=== PATIENT | female | born 1985 | race Caucasian/White ===

== ENCOUNTER 2016-10-16 05:18 | Inpatient (IN) | payer OTHER ==
[~2016-10-16] VITALS: Ht 175.3 cm; Wt 72.3 kg
[~2016-10-16 05:18] MED LIST: SENN15CH6 PO
[2016-10-27] MEDS ORDERED: PRENTAB26 PO (08:10)
[2016-10-27 08:12] VITALS: Ht 175.3 cm; Wt 72.3 kg
[2016-10-27 09:39] LABS: HEMATOCRIT 34.8 % (37-47); MEAN CELL VOLUME 91.8 fL (80-100); MEAN CORPUSCULAR HEMOGLOBIN 32.2 pg (25-34); MEAN CORPUSCULAR HGB CONC 35.1 g/dl (32-36); MEAN PLATELET VOLUME 9.9 fL (7.4-10.4); PLATELET COUNT 159 K/uL (130-400); RED BLOOD COUNT 3.79 M/uL (4.2-5.4); WHITE BLOOD COUNT 9.53 K/uL (4.8-10.8)
[2016-10-27] MEDS ORDERED: MISOPROSTOL 25 MCG TAB PV ONE (09:45)
[2016-10-27] MEDS ORDERED: CALCIUM CARBONATE 500 MG CHEWABLE PO PRN (10:45)
[2016-10-27] MEDS ORDERED: MISOPROSTOL 25 MCG TAB ONE (15:15)
[2016-10-27] MEDS ORDERED: MISOPROSTOL 25 MCG TAB PO ONE (15:30)
[2016-10-28] MEDS ORDERED: LACTATED RINGER'S 1000ML 500 ML IV PRN ×2 (07:48→15:52)
[2016-10-28] MEDS: LACTATED RINGER'S 1000ML 1,000 ML IV SCH ×4 (07:51→20:32)
[2016-10-28] MEDS ORDERED: OXYTOCIN 30 UNITS/500ML NSS IV PRN (08:00)
[2016-10-28] MEDS ORDERED: BUPIVACAINE 0.25% 30 ML VIAL ONE (14:52)
[2016-10-28] MEDS ORDERED: FENTANYL 2MCG/ML ROPIV 1.25MG/ML 100ML BAG EPI ONE (14:53)
[2016-10-28] MEDS ORDERED: FENTANYL CITRATE INJ 50 MCG/1 ML 2 ML VIAL ONE (14:53)
[2016-10-28] MEDS ORDERED: EpHEDrine SULFATE INJ 50 MG/ML AMP ONE (14:53)
[2016-10-28] MEDS ORDERED: NALOXONE HCL INJ 1 MG in SODIUM CHLORIDE 0.9% 1000ML 1,000 ML IV PRN (15:52)
[2016-10-28] MEDS ORDERED: NALBUPHINE HCL INJ 10 MG/ML AMP IV PRN (16:00)
[2016-10-28] MEDS ORDERED: NALOXONE HCL INJ 0.4 MG/1 ML VIAL/CARP IV PRN (16:00)
[2016-10-28] MEDS ORDERED: ONDANSETRON INJ 2 MG/ML 2 ML VIAL IV PRN (16:00)
[2016-10-28] MEDS ORDERED: DiphenhydrAMINE HCL 50 MG/ML VIAL IV PRN (16:00)
[2016-10-28] MEDS ORDERED: EpHEDrine SULFATE INJ 50 MG/ML AMP IV PRN (16:00)
[2016-10-28] MEDS ORDERED: TERBUTALINE SULFATE 1 MG/ML VIAL SQ STA (21:20)
[2016-10-28] MEDS: FENTANYL 2MCG/ML ROPIV 1.25MG/ML 100ML BAG EPI PRN ×2 (22:56→23:04)
[2016-10-29] VITALS (7 sets, daily range): BP systolic 95–116; BP diastolic 58–66; PULSE 95–113; TEMP 36.3–37.6; O2SAT 96–98
[2016-10-29] MEDS ORDERED: NURSING VERBAL MED ORDER ONE (02:45)
[2016-10-29] MEDS ORDERED: CEFAZOLIN SOD 2000 MG in DEXTROSE 5% 50ML IV STA (02:45)
[2016-10-29] MEDS ORDERED: LACTATED RINGER'S 1000ML 1,000 ML IV SCH (02:50)
[2016-10-29] MEDS ORDERED: MISOPROSTOL 200 MCG TAB PR STA (02:58)
[2016-10-29] MEDS ORDERED: MEASLES, MUMPS & RUBELLA VIRUS VIAL SQ. ONE (03:00)
[2016-10-29] MEDS ORDERED: LANOLIN OINT EXT PRN ×2 (03:00)
[2016-10-29] MEDS ORDERED: HYDROCORTISONE ACETATE 25 MG SUPP PR PRN (03:00)
[2016-10-29] MEDS ORDERED: OXYTOCIN 30 UNITS/500ML NSS IV PRN (03:00)
[2016-10-29] MEDS ORDERED: BENZOCAINE 20% AER SPR 82.5 GM CAN EXT PRN (03:00)
[2016-10-29] MEDS ORDERED: DIPHTHERIA/TETANUS/PERTUSSIS 0.5 ML SYR/VIAL IM. ONE (03:00)
[2016-10-29] MEDS ORDERED: SUPERCREAM 0.870 % 15GM JAR EXT PRN (03:00)
[2016-10-29] MEDS ORDERED: ACETAMINOPHEN 325 MG TAB PO PRN (03:00)
--- NOTE | 2016-10-29 03:17 | DELIVERY SUMMARY ---
DATE OF OPERATION: 10/29/2016 DATE OF DELIVERY: 10/29/2016 TIME OF DELIVERY OF BABY: 02:13 a.m. TIME OF DELIVERY OF PLACENTA: 02:41 a.m. DETAILS OF DELIVERY: The patient was found to be fully dilated and desired to push. She pushed for about 1 hour and 45 minutes and the head was over the perineum which had tight hymenal ring and perineal muscles. The patient was exhaused and desired episiotomy. 1% Lidocaine was used for local anesthesia. A right mediolateral episiotomy was opened. The baby's head was delivered without difficulty. There was a nuchal cord around the next x1, which was reduced by delivering the body. Shoulders were delivered with minimal traction. Baby was handed off to the mother where mouth and nose were suctioned. Cord was clamped x2 and cut at 1 minute, and cord blood was obtained. Vagina and perineum were checked for lacerations, there was right mediolateral episiotomy which was opened earlier, no other lacerations were seen, it was second degree, confirmed with rectal exam. Gloves were changed. The episiotomy was repaired with 2-0 Vicryl in a running fashion brining the bulbocavernosus muscles together, skin in a subcuticular fashion. Rectal exam was repeated. Good sphincter tone was noted and no sutures were felt. Gloves were changed. The rest of the vagina, perineum, and labia appeared to be intact. The placenta was found to be in the vagina, delivered spontaneously as intact and complete. Uterus was explored and emptied from the clots and found to be empty otherwise. Fundus was boggy and she was given IV Pitocin and bimanual massage was done and 800 mcg of misoprostol was placed in the rectum and the bleeding slowed down and uterus became firm. EBL was 300. Mother and baby tolerated the procedure well. Sponge, lap, needle and instrument counts were correct x2. Baby was a viable male infant. Apgars 8/9, weight is 3814 gr. Baby's temperature was 38.3 and mom's temperature was 99.9 Fahrenheit. The patient was feeling warm by vaginal exam, and decision was made to start cefazolin IV. No complications happened and I was present during the whole procedure. I attest to the content of the Intraoperative Record and any orders documented therein. Any exceptions are noted below. MTDD
[2016-10-29] MEDS: IBUPROFEN 600 MG TAB PO PRN ×4 (04:42→20:06)
[2016-10-29] MEDS: PRENATAL VITAMIN TAB PO SCH (08:17)
[2016-10-29] MEDS: DOCUSATE SODIUM 100 MG CAP PO SCH ×2 (08:18→20:06)
[2016-10-29] MEDS: FERROUS SULFATE 325 MG TAB PO SCH (08:18)
[2016-10-29] MEDS ORDERED: MISOPROSTOL 200 MCG TAB ONE (08:35)
--- NOTE | 2016-10-29 10:10 | Anesthesia Procedure Note ---
Anesthesia Epidural Removal Nt Date & Time Oct 29, 2016 at 10:09 Vital Signs Pain Intensity: 6.0 Vital Signs Past 12 Hours Date Time Temp Pulse Resp B/P (MAP) Pulse Ox O2 Delivery O2 Flow Rate FiO2 10/29/16 08:00 Room Air 10/29/16 08:00 37.2 103 18 98/62 (74) Room Air 10/29/16 05:37 Room Air 10/29/16 05:33 37.6 113 20 116/59 (78) Room Air Notes Mental Status: alert / awake / arousable, participated in evaluation Nausea / Vomiting: adequately controlled Pain: adequately controlled Airway Patency, RR, SpO2: stable & adequate BP & HR: stable & adequate Hydration State: stable & adequate Neuraxial Anesthesia: was administered, sensory block is resolved Anesthetic Complications: no major complications apparent, pt satisfied with anesthetic care Epidural: removed without complications, with tip intact
[2016-10-29] MEDS: CEFAZOLIN IV 2,000 MG in DEXTROSE 5% 50ML 50 ML IV SCH ×2 (10:54→18:28)
[2016-10-29] MEDS: OXYCODONE/ACETAMINOPHEN 5-325 TAB PO PRN (20:46)
[2016-10-30] MEDS: IBUPROFEN 600 MG TAB PO PRN ×3 (03:28→19:32)
[2016-10-30] MEDS: OXYCODONE/ACETAMINOPHEN 5-325 TAB PO PRN ×3 (03:28→19:33)
[2016-10-30 08:30] VITALS: BP 94/58; PULSE 96; TEMP 36.3; O2SAT 98
[2016-10-30] MEDS: PRENATAL VITAMIN TAB PO SCH (08:36)
[2016-10-30] MEDS: DOCUSATE SODIUM 100 MG CAP PO SCH ×2 (08:36→19:31)
[2016-10-30] MEDS: FERROUS SULFATE 325 MG TAB PO SCH ×2 (08:36→19:31)
--- NOTE | 2016-10-30 09:39 | OB/GYN Progress Note ---
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 Subjective conversation w/ patient, physical exam Ambulation: ambulating normally Voiding: no voiding problems Passing Gas: Yes Diet Tolerance: Regular Diet Lochia: Small Feeding Type: Breast Feeding Objective Vital Signs Date Time Temp Pulse Resp B/P (MAP) Pulse Ox O2 Delivery O2 Flow Rate FiO2 10/30/16 08:30 36.3 96 18 94/58 (70) 98 Room Air 10/30/16 08:30 98 Room Air 10/29/16 23:45 97 Room Air 10/29/16 23:45 36.3 99 18 105/66 (79) 97 Room Air 10/29/16 19:55 36.8 97 18 95/58 (70) 97 Room Air 10/29/16 15:30 36.7 95 18 99/61 (74) 98 Room Air 10/29/16 15:30 98 Room Air 10/29/16 15:15 36.8 98 16 100/65 (77) 96 Room Air 10/29/16 12:50 36.7 102 20 98/62 (74) 96 Room Air Physical Exam General Appearance: WELL-APPEARING, NO APPARENT DISTRESS Abdomen: non tender, soft Fundus: Firm Extremities: normal inspection, no pedal edema, no calf tenderness Laboratory Results Last 24 Hours Test 10/30/16 06:19 Hemoglobin 8.2 g/dL Hematocrit 24.0 % Assessment and Plan Post- Day Number: 1 Continue Routine Care: tent d/c in AM
[2016-10-30 15:40] VITALS: BP 100/57; PULSE 94; TEMP 36.6
[2016-10-30] MEDS ORDERED: BISACODYL 5 MG TABEC PO SCH (20:00)
[2016-10-30 23:30] VITALS: BP 97/56; PULSE 95; TEMP 37.1
[2016-10-31 06:52] LABS: HEMATOCRIT 24.1 % (37-47); MEAN CELL VOLUME 94.9 fL (80-100); MEAN CORPUSCULAR HEMOGLOBIN 31.9 pg (25-34); MEAN CORPUSCULAR HGB CONC 33.6 g/dl (32-36); MEAN PLATELET VOLUME 9.3 fL (7.4-10.4); PLATELET COUNT 163 K/uL (130-400); RED BLOOD COUNT 2.54 M/uL (4.2-5.4); WHITE BLOOD COUNT 10.55 K/uL (4.8-10.8)
[2016-10-31] MEDS ORDERED: BISACODYL 10 MG SUPP PR PRN (07:00)
--- NOTE | 2016-10-31 08:22 | OB/GYN Progress Note ---
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 Patient is seen and examined. She feels well, no complaints. Ambulating without dizziness Voiding without difficulty Tolerating regular diet with out N&V Bleeding is minimal No fever/ chills/ CP/ SOB/ N&V/ Leg pain Breast feeding without problems Date Time Temp Pulse Resp B/P (MAP) Pulse Ox O2 Delivery O2 Flow Rate FiO2 10/30/16 23:30 37.1 95 18 97/56 (70) Room Air 10/30/16 23:30 Room Air 10/30/16 15:40 36.6 94 18 100/57 (71) Room Air 10/30/16 15:40 Room Air 10/30/16 08:30 36.3 96 18 94/58 (70) 98 Room Air 10/30/16 08:30 98 Room Air Last 24 Hours Test 10/31/16 06:03 White Blood Count 10.55 K/uL Red Blood Count 2.54 M/uL Hemoglobin 8.1 g/dL Hematocrit 24.1 % Mean Corpuscular Volume 94.9 fL Mean Corpuscular Hemoglobin 31.9 pg Mean Corpuscular Hemoglobin Concent 33.6 g/dl RDW Standard Deviation 47.6 fL RDW Coefficient of Variation 13.8 % Platelet Count 163 K/uL Mean Platelet Volume 9.3 fL PE: General: Alert, orientedx3, NAD Abd: soft, NT, fundus firm, below Umbilicus Perineum intact, Lochia rubra minimal Ext; NT, no edema AP: 31 yo s/p , ppd# 2 VSS Afebrile doing well Anemic: asymptomatic, on iron bid Continue routine care Instructions were given when to call All questions were answered D/C home , f/u in office
[2016-10-31] MEDS ORDERED: MTR600X PO (08:23)
[2016-10-31] MEDS ORDERED: FRRS300 PO (08:23)
[2016-10-31] MEDS ORDERED: CLC100 PO (08:23)
--- NOTE | 2016-10-31 08:24 | Discharge Instructions ---
Discharge Instructions Date of Service Oct 31, 2016. Admission Reason for Admission: Induction Discharge Discharge Diagnosis / Problem: Discharge Goals Goal(s): Routine recovery after delivery Medications Continue Dispensed Medications: supercream, lansinoh Activity Recommendations Activity Limitations: as noted below Lifting Limitations: gradually increase as tolerated Exercise/Sports Limitations: until after follow-up appointment May Resume Sexual Activity: after follow-up appointment Shower/Bathe: no limitations Driving or Machine Use: ACTIVITY RECOMMENDATIONS: * Gradual return to full activity over the next 2-3 weeks. * No lifting - nothing heavier than baby over the next 2-3 weeks. * Do not engage in vigorous exercise, sexual activity or sports until cleared by your physician. * Do not drive or operate any motorized equipment until cleared by your physician. * You may shower/bathe daily. BREAST CARE: If you are not breast feeding: * Wear a supportive bra 24 hours a day for one to two weeks. * Avoid stimulating your breasts and nipples as much as possible during the first few weeks after delivery. * When taking a shower, have the warm water hit your back, not breasts. * When your breasts feel full, apply ice packs. Usually three to four times a day helps ease the discomfort. * Take a mild pain medication (Tylenol/Motrin) when you are uncomfortable. If breast feeding: * Use breast milk to lubricate nipples. Lansinoh cream may be used for sore nipples. You do not need to remove cream prior to breast feeding. If using a different brand of cream, check the label for directions regarding removal of cream prior to nursing. * Wear a supportive bra. * If having problems with breasts or breast feeding, call a otm consultant or your health care provider. EPISIOTOMY CARE: After delivery, if you have an episiotomy (stitches), the following steps will ease discomfort and aid healing. * For the first 24 hours after delivery, place ice packs next to your episiotomy to help reduce swelling. * After the first 24 hour-period, sitz baths, either portable or in the tub, are suggested. A shower with a shower arm sprayed over the episiotomy may be comforting. * Roxanna care should be done after each voiding and bowel movement. Squirt warm water from a plastic bottle over the perineum (region of the body between the anus and urinary opening) and pat dry. * Use Dermoplast to ease discomfort. Shake container. [place] directly over the episiotomy. * Place a Tucks on a clean sanitary pad next to your episiotomy. OVER THE COUNTER MEDICATION: * For discomfort or pain, you may use Acetaminophen (Tylenol), Ibuprofen (Advil ), or Naproxen (Aleve) following the package directions. * For constipation you may use Colace following the package directions. SPECIAL CARE INSTRUCTIONS: When you are discharged from the hospital, it is important for you to follow the instructions listed below: * During the first week at home, you should be able to care for yourself and your baby. In addition, the usual light household activities are encouraged. * Limit your activities to the way you feel. Do not try to clean the house or move furniture. Be sensible. * If you actively engage in sports and have done so up until the time of your delivery, you may resume these activities as soon as you feel able. This may take up to one month or even longer. Use good judgment. * Continue to take your vitamins for at least six weeks after the of your baby. * Your diet need not be limited unless you were on a special diet before your delivery. Breast-feeding mothers need around 2500 calories per day and at least 64-80 ounces of fluid per day (8 to 10 glasses). * You should eat foods from the four major food groups. Crash diets or fad diets are to be avoided. Eating lean meats, fresh fruits and vegetables, low-fat dairy products, high fiber foods and a regular exercise program, will help you get back to your pre- weight without putting your health at risk. * Constipation is sometimes a problem after delivery. Take a mild laxative as needed. If breast feeding, Milk of Magnesia is acceptable to use. You may use a suppository or Fleets enema if no episiotomy. * A daily shower or tub bath is suggested. Be sure to thoroughly and gently dry the perineum. * A bloody vaginal discharge will usually continue until around four weeks post . A small amount of bleeding may continue for as long as six weeks. Vaginal discharge changes from the bright red bleeding after delivery to pink then brownish and finally yellowish-pink before becoming white and disappearing. * Bleeding may increase with activity. Your first period may come in 4-8 weeks. If you are breast feeding, your period may be delayed even longer. * Hurst (sex) can begin whenever both you and your partner feel comfortable and do not have any form of genital infection. It is recommended that you wait until after your return appointment and discuss with your physician. If you have questions, please talk to your health care practitioner. A condom should be used to prevent infection and . * Foreplay, gentle intercourse and lubrication is very important the first several times to prevent pain. A water-based lubricant such as K-Y jelly or Astroglide may be used. * Tampons may be used six weeks after delivery. * Douching should be avoided for 6 weeks after delivery. * If you have RH negative blood and your baby is RH positive, you will receive RHOGAM by injection prior to discharge. The nurse will give you a card to keep with you that has the date and place that you received RHOGAM after delivery. * During your care, you had a Rubella screen done to check for the presence of rubella antibodies in your blood. If your test was negative, you will receive a Rubella vaccine prior to discharge. This vaccine may cause a fever, soreness at the injection site and flu-like symptoms. If these symptoms persist, notify your health care practitioner. is not advised for three months after a Rubella vaccine. There is a higher chance of having a baby with defects if conceived within three months of getting the vaccine. * If you were discharged 24 hours from delivery or before 48 hours: Visiting nurses will come to your home 48 hours after discharge to assess you and your baby. The visiting nurse will meet with you while you are in the hospital to arrange a time and get directions to your home. * Verbalizes understanding of car seat law as reviewed with patient nursing. * Car Seat hand-out given and reviewed with patient by nursing. * Shaken baby information reviewed with patient by nursing. Call you doctor if: * Heavy bleeding (saturating several pads an hour) or passing clots the size of your fist. * A fever >101 degrees F (38.3 degrees C) on two occasions four hours apart and/or chills. * Unusual pain in the pelvic or vaginal areas. * "Baby Blues" lasting longer than two weeks. If you have any questions or concerns, call your health care practitioner at . FOLLOW-UP VISIT: * Please call the office at to schedule a 6 week examination. It is important you keep this appointment. * It is important for you to make arrangements for either yearly or twice yearly check-ups thereafter. . Current Hospital Diet Patient's current hospital diet: Regular OB Diet Discharge Diet Recommended Diet: Regular Diet Pending Studies Studies pending at discharge: no Medical Emergencies . Who to Call and When: Medical Emergencies: If at any time you feel your situation is an emergency, please call 911 immediately. . Non-Emergent Contact Non-Emergency issues call your: Surgeon Call Non-Emergent contact if: you have a fever, temperature is above 100.5, your pain is not controlled . . "Provider Documentation" section prepared by No Frias. . VTE Core Measure Inpt VTE Proph given/why not?: Treatment not indicated
[2016-10-31] MEDS: PRENATAL VITAMIN TAB PO SCH (09:04)
[2016-10-31] MEDS: FERROUS SULFATE 325 MG TAB PO SCH (09:04)
[2016-10-31] MEDS: DOCUSATE SODIUM 100 MG CAP PO SCH (09:04)
[2016-10-31 09:08] VITALS: BP 94/58; PULSE 96; TEMP 36.6; O2SAT 97
[2016-10-31 15:02] VITALS: BP_DIAS 58; PULSE 96; TEMP 36.6
== END 2016-10-31 15:35 | disposition home or self-care (01) | DRG 774 ==
LOC: EDSTATUS 05:19 → C.LD 10-27 07:37 → C.OBG 10-29 05:24
PROVIDERS: ADMIT Obstetrics & Gynecology; ATTEND Obstetrics & Gynecology
PROC: 0U7C7ZZ Dilation of Cervix, Via Natural or Artificial Opening (ICD-10-PCS; 2016-10-27)
PROC: 0W8NXZZ Division of Female Perineum, External Approach (ICD-10-PCS; principal; 2016-10-29)
PROC: 10E0XZZ Delivery of Products of Conception, External Approach (ICD-10-PCS; principal; 2016-10-29)
DX: O48.0 Post-term pregnancy (principal); O86.4 Pyrexia of unknown origin following delivery; O69.81X0 Labor and delivery complicated by cord around neck, without compression, not applicable or unspecified; Z3A.41 41 weeks gestation of pregnancy